=== PATIENT | male | born 1945 | race Caucasian/White ===

== ENCOUNTER → 2016-08-03 | Outpatient (CLI) | payer MEDICARE ==
[~2016-08-03] MED LIST: DIOVAN HCT 160/1 TAB; GLUCOPHAGE XR500 MG; GLUCOSAMINE/CHONDROI; GLYNASE; LODINE; NORVASC; ZOCOR
--- NOTE | ~2016-08-03 | EKG ---
PATIENT: KALEIGH CONLEY UNIT #: [id number] Ventricular Rate: 89 BPM Atrial Rate: 89 BPM P-R Interval: 142 ms QRS Duration: 96 ms Q-T Interval: 362 ms QTC Calculation(Bezet): 440 ms P [place]: 9 degrees Calculated R [place]: -32 degrees Calculated T [place]: 43 degrees Diagnosis Line: Normal sinus rhythm Diagnosis Line: Left axis deviation Diagnosis Line: Minimal voltage criteria for LVH, may be normal Diagnosis Line: variant Diagnosis Line: Abnormal ECG Diagnosis Line: No previous ECGs available Diagnosis Line: Confirmed by ALE ALLISON MD ([id number]) on 08/04/2016 Diagnosis Line: 9:35:39 AM INTERPRETING MD: ESTEFANY GONZALES
== END | disposition home or self-care (01) ==
LOC: CEKG 09:25
DX: H61.899 Other specified disorders of external ear, unspecified ear (principal); R94.31 Abnormal electrocardiogram [ECG] [EKG]
CPT/HCPCS: 93005

== ENCOUNTER → 2017-01-03 | Outpatient (CLI) | payer MEDICARE ==
--- NOTE | ~2017-01-03 | US85 ---
[facility] A Service of [facility] RADIOLOGY TEXT RESULTS PATIENT: KALEIGH CONLEY LOCATION: CNIV : 45 UNIT #: [id number] AGE: [address]: Hema Pino MD SEX: M ORDER DR: [id number] [facility] [address] [facility] [place], [place] [address] [id number] O MR#: [id number] Acc #: [id number] NAME: KALEIGH CONLEY : 1945 SEX: M STUDY DATE/TIME: 01/03/2017 13:21 UNIT: CNIV ROOM: STUDY DESCRIPTION: [facility] [employer] [facility] [employer] [facility] Attending Physician: Hema Pino M.D. Referring Physician: Hema Pino M.D. Ordering Physician: Hema Pino M.D. Primary Care Physician: Hema Pino M.D. MEDICAL IMAGING REPORT This report is preliminary unless electronic signature is present EXAM Left leg vein Doppler, 01/03 INDICATION Left thigh pain and calf pain for the last 3 days. No trauma. TECHNIQUE Venous ultrasound examination of the left lower extremity was performed using grayscale, spectral Doppler and color flow Doppler imaging. FINDINGS The examination is negative. There is no evidence of left lower extremity deep venous thrombus from the groin to the lower calf. Visualized greater saphenous vein is also patent. IMPRESSION Negative examination. No evidence of left lower extremity deep venous thrombosis. Dictated by... Dewey Garnica Jr., M.D. THIS IS AN ELECTRONICALLY VERIFIED REPORT Dewey Garnica Jr., M.D. at 01/04/2017 4:32 PM FLOYD/tawny TD: 01/03/2017 14:45 JOB #: [id number] MEDICAL IMAGING REPORT Page 1 of 1 COPY
== END | disposition home or self-care (01) ==
LOC: CNIV 12:42
DX: M79.605 Pain in left leg (principal)
CPT/HCPCS: 93971